=== PATIENT | male | born 1945 ===

== ENCOUNTER 2024-07-22 05:36 | Day surgery (SDC) | payer OTHER ==
[2024-07-14 08:43] VITALS: BP 131/77
[2024-07-14 08:59] LABS: PH,URINE 5.5 (5.0-8.0); URINE APPEARANCE Clear; URINE BILIRRUBIN Negative (NEGATIVE); URINE COLOR Yellow; URINE GLUCOSE Negative (NEGATIVE); URINE KETONE Negative (NEGATIVE); URINE LEUKOCYTE Negative; URINE NITRATE Negative; URINE PROTEIN Negative (NEGATIVE); URINE UROBILINOGEN 0.2 E.U./dl
[2024-07-14 09:00] LABS: HEMATOCRIT 44.3 % (39.0-48.0); HEMOGLOBIN 15.2 g/dL (13-16.00); MEAN CELL VOLUME 91.5 fL (80.0-100.00); MEAN CORPUSCULAR HEMOGLOBIN 31.4 pg (27.00-32.0); MEAN CORPUSCULAR HGB CONC 34.3 g/dl (32.0-36.0); PLATELET COUNT 225 K/uL (150-450); RED BLOOD COUNT 4.84 M/uL (4.00-6.00); RED CELL DISTRIBUTION WIDTH 13.6 % (11.5-14.5)
[2024-07-14 09:04] LABS: URINE BACTERIA 8.5 uL (0.0-1933)
[2024-07-14 09:08] LABS: URINE BLOOD TRACE; URINE EPITHELIAL CELLS 1.2 uL (0.0-38.8); URINE WBC 1.4 uL (0.0-23.2)
[2024-07-14 09:20] LABS: INR 1.01; PARTIAL THROMBOPLASTIN TIME 25.8 SECONDS (22.0-34.0)
[2024-07-14 12:58] LABS: ALBUMIN 3.5 gm/dL (3.4-5.0); BILIRUBIN TOTAL 0.86 mg/dL (0.3-1.2); CALCIUM 9.3 mg/dL (8.5-10.1); CREATININE SERUM 0.89 mg/dL (0.70-1.30); GFR 82.88; GLOBULINA 3.3 G/DL (2.4-3.5); POTASSIUM 4.29 mEq/L (3.5-5.1); TOTAL PROTEIN 6.8 gm/dL (6.4-8.2)
[~2024-07-22] VITALS: Ht 167.6 cm; Wt 81.6 kg
[~2024-07-22 05:36] MED LIST: GLIPIZIDE XL10 MG; LIPITOR80 MG PO; METFORMIN HCL500 M3 PO
[2024-07-22] MEDS ORDERED: CEFAZOLIN SODIUM 1,000 MG VIAL IV ONE (13:30)
[2024-07-22] MEDS ORDERED: ISOPROPYL ALCOHOL 30 ML OUNCE TOP ONE (13:45)
[2024-07-22] MEDS ORDERED: MORPHINE SULFATE 4 MG/ML VIAL IV ONE ×2 (15:05→16:05)
== END 2024-07-22 17:15 | disposition home or self-care (01) ==
LOC: CIR.AMB 05:36
PROVIDERS: ATTEND Orthopaedic Surgery Hand Surgery
DX: M19.141 Post-traumatic osteoarthritis, right hand (principal); G56.01 Carpal tunnel syndrome, right upper limb; E78.5 Hyperlipidemia, unspecified; M19.90 Unspecified osteoarthritis, unspecified site